=== PATIENT | male | born 1965 ===

== ENCOUNTER 2016-10-05 10:08 | Emergency (ER) | payer OTHER ==
[2016-10-05 10:15] VITALS: BP 148/82; PULSE 108; RESP 16; TEMP 97.9; O2SAT 99
--- NOTE | 2016-10-05 10:50 | C.PDOC ---
History Of Present Illness 51-year-old male, presents to the emergency department with complaints of left- facial droop x4 days. States he has to hold his mouth when drinking water because it spills. 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 Denies any numbness/weakness in extremities, slurred speech, tingling sensation, nausea/vomiting, fevers, chills, shortness of breath, chest pain, or any other associated symptoms. No other complaints at this time. Time Seen by Provider: 10/05/16 10:41 Chief Complaint (Nursing): Weakness/Neurological Deficit History Per: Patient History/Exam Limitations: no limitations Past Medical History Reviewed: Historical Data, Nursing Documentation, Vital Signs Vital Signs: Last Vital Signs Temp 97.9 F 10/05/16 10:13 Pulse 108 H 10/05/16 10:13 Resp 16 10/05/16 10:13 BP 148/82 10/05/16 10:13 Pulse Ox 99 10/05/16 10:56 Family History: States: Unknown Family Hx - Social History Hx Alcohol Use: Yes Hx Substance Use: No Review Of Systems Except As Marked, All Systems Reviewed And Found Negative. Constitutional: Negative for: Fever, Chills Cardiovascular: Negative for: Chest Pain Respiratory: Negative for: Cough, Shortness of Breath Gastrointestinal: Negative for: Vomiting Neurological: Positive for: Other (L FACIAL DROOP). Negative for: Weakness, Incoordination, Confusion, Seizures, Headache, Dizziness Physical Exam - Physical Exam Appears: Non-toxic, No Acute Distress Skin: Warm, Dry, No Rash Head: Atraumatic, Normacephalic Eye(s): bilateral: Normal Inspection Nose: Normal Oral Mucosa: Moist Lips: Normal Appearing Neck: Normal ROM Cardiovascular: Rhythm Regular Respiratory: No Accessory Muscle Use Extremity: Normal ROM Neurological/Psych: Oriented x3, Normal Speech, Other (FINDINGS CONSISTENT W/ BELLS PALSY) ED Course And Treatment O2 Sat by Pulse Oximetry: 99 Disposition - Disposition Referrals: [facility] [Outside] [facility] [Outside] Disposition Time: 10:48 Condition: GOOD Prescriptions: Mineral Oil/White Petrolatum [Lacri-Lube] 0.25 inch OS PRN PRN #1 tube PRN Reason: Dry Eyes predniSONE [Prednisone] 60 mg PO DAILY #15 tab Instructions: Joe Palsy (ED) Forms: Work Excuse Print Language: SOUTH SUDANESE - Clinical Impression Clinical Impression: Joe palsy - Scribe Statement The provider has reviewed the documentation as recorded by the Leodan Jay Provider Attestation: All medical record entries made by the Oksanaibangelo were at my direction and personally dictated by me. I have reviewed the chart and agree that the record accurately reflects my personal performance of the history, physical exam, medical decision making, and the department course for this patient. I have also personally directed, reviewed, and agree with the discharge instructions and disposition.
--- NOTE | 2016-10-05 10:50 | C.PDOC ---
Time Seen by Provider: 10/05/16 10:41 Chief Complaint (Nursing): Weakness/Neurological Deficit Past Medical History Vital Signs: Last Vital Signs Temp 97.9 F 10/05/16 10:13 Pulse 108 H 10/05/16 10:13 Resp 16 10/05/16 10:13 BP 148/82 10/05/16 10:13 Pulse Ox 99 10/05/16 10:13 - Social History Hx Alcohol Use: Yes Hx Substance Use: No ED Course And Treatment O2 Sat by Pulse Oximetry: 99 Disposition Counseled Patient/Family Regarding: Diagnosis, Need For Followup, Rx Given - Disposition Referrals: [facility] [Outside] [facility] [Outside] Disposition: HOME/ ROUTINE Disposition Time: 10:48 Condition: GOOD Prescriptions: Mineral Oil/White Petrolatum [Lacri-Lube] 0.25 inch OS PRN PRN #1 tube PRN Reason: Dry Eyes predniSONE [Prednisone] 60 mg PO DAILY #15 tab Instructions: Joe Palsy (ED) Forms: Work Excuse Print Language: CITIZEN OF [place] - Clinical Impression Clinical Impression: Joe palsy
== END 2016-10-05 11:24 | disposition home or self-care (01) ==
LOC: C.ER 10:08
DX: G51.0 Bell's palsy (principal)